=== PATIENT | male | born 1940 | race Caucasian/White ===

== ENCOUNTER → 2017-04-20 | Outpatient (CLI) | payer OTHER, BC ==
[~2017-04-20] MED LIST: ACETAMINOPHEN325 M1 PO; ADULT LOW DOSE81 MG PO; ALBUTEROL2.5 MG/0.5 INH; ALBUTEROL2.5 MG/31 INH; ASPIR 8181 MG PO; ASPIRIN EC325 M1 PO; ATENOLOL 50MG T50 M1 PO; ATROVENT30 ML INH; BENICAR20 MG PO; CARDIZEM CD 30300 M1 PO; CATHFLO ACT2 MG/VIA1 IJ; CENTRUM SILVER1 EAC4 PO; CERTAGEN SENIOR PO; COLACE100 MG PO; COZAAR100 MG PO; DULCOLAX10 MG RC; DUONEB 2.5-0.5 M3 ML INH; ELIQUIS5 MG PO; FLECAINIDE ACE100 MG PO; HYDROCHLOROTH12.5 M2 PO; HYDROCODONE-AP1 EAC6 PO; HYDROXYCHLOROQ200 M1 PO; KEFLEX250 MG PO; LASIX 20 MG TAB20 MG PO; LEVAQUIN 250 M250 MG PO; LIPITOR 20 MG T20 M1 PO; MILK OF MA2400 MG/10 PO; MIRALAX17 GM; MIRALAX17 GM PO; NORCO 5-325 TA1 EACH PO; NORVASC10 MG PO; NOVOLIN N100 UNIT/3 SQ; PACERONE 200 M200 M1 PO; PLAVIX 75 MG TA75 MG PO; PREDNISONE 10 M10 MG PO; PROAIR HFA8.5 GM INH; SENOKOT-S1 TA1 PO; SPIRIVA INH; TENORMIN25 MG PO; TENORMIN50 MG PO; TRAMADOL 50 MG50 MG PO; TYLENOL325 MG PO; VANCOCIN 250 M250 M1 PO; VENTOLIN HFA 1818 GM INH; VISINE-A EYE DR15 M1 OP; VITAMIN C120 GM
== END ==
LOC: HYPER 04-06 10:05
DX: T81.31XA Disruption of external operation (surgical) wound, not elsewhere classified, initial encounter (principal); I73.9 Peripheral vascular disease, unspecified; J44.9 Chronic obstructive pulmonary disease, unspecified; Z95.0 Presence of cardiac pacemaker; Z87.891 Personal history of nicotine dependence; Y83.8 Other surgical procedures as the cause of abnormal reaction of the patient, or of later complication, without mention of misadventure at the time of the procedure

== ENCOUNTER → 2017-04-26 | Outpatient (CLI) | payer OTHER, BC | LOC: HYPER 06:58 | DX: T81.31XD Disruption of external operation (surgical) wound, not elsewhere classified, subsequent encounter (principal); J44.9 Chronic obstructive pulmonary disease, unspecified; I73.9 Peripheral vascular disease, unspecified; Y83.8 Other surgical procedures as the cause of abnormal reaction of the patient, or of later complication, without mention of misadventure at the time of the procedure ==

== ENCOUNTER → 2017-05-03 | Outpatient (CLI) | payer OTHER, BC | LOC: HYPER 07:09 | DX: T81.31XD Disruption of external operation (surgical) wound, not elsewhere classified, subsequent encounter (principal); I70.245 Atherosclerosis of native arteries of left leg with ulceration of other part of foot; L97.521 Non-pressure chronic ulcer of other part of left foot limited to breakdown of skin; I73.9 Peripheral vascular disease, unspecified; J44.9 Chronic obstructive pulmonary disease, unspecified; Z87.891 Personal history of nicotine dependence; Y83.8 Other surgical procedures as the cause of abnormal reaction of the patient, or of later complication, without mention of misadventure at the time of the procedure ==

== ENCOUNTER → 2017-05-10 | Outpatient (CLI) | payer OTHER, BC | LOC: HYPER 05-09 11:52 | DX: T81.31XD Disruption of external operation (surgical) wound, not elsewhere classified, subsequent encounter (principal); I73.9 Peripheral vascular disease, unspecified; J44.9 Chronic obstructive pulmonary disease, unspecified; Z95.0 Presence of cardiac pacemaker; Z87.891 Personal history of nicotine dependence; Y83.8 Other surgical procedures as the cause of abnormal reaction of the patient, or of later complication, without mention of misadventure at the time of the procedure ==

== ENCOUNTER → 2017-05-17 | Outpatient (CLI) | payer OTHER, BC | LOC: HYPER 07:19 | DX: T81.31XD Disruption of external operation (surgical) wound, not elsewhere classified, subsequent encounter (principal); I73.9 Peripheral vascular disease, unspecified; J44.9 Chronic obstructive pulmonary disease, unspecified; Z95.0 Presence of cardiac pacemaker; Z87.891 Personal history of nicotine dependence; Y83.8 Other surgical procedures as the cause of abnormal reaction of the patient, or of later complication, without mention of misadventure at the time of the procedure ==

== ENCOUNTER → 2017-06-21 | Outpatient (CLI) | payer OTHER, BC | LOC: HYPER 06:48 | DX: T81.31XD Disruption of external operation (surgical) wound, not elsewhere classified, subsequent encounter (principal); I87.333 Chronic venous hypertension (idiopathic) with ulcer and inflammation of bilateral lower extremity; L97.821 Non-pressure chronic ulcer of other part of left lower leg limited to breakdown of skin; L97.811 Non-pressure chronic ulcer of other part of right lower leg limited to breakdown of skin; E43 Unspecified severe protein-calorie malnutrition; J44.9 Chronic obstructive pulmonary disease, unspecified; Z87.891 Personal history of nicotine dependence; Y83.8 Other surgical procedures as the cause of abnormal reaction of the patient, or of later complication, without mention of misadventure at the time of the procedure ==

== ENCOUNTER → 2017-06-28 | Outpatient (CLI) | payer OTHER, BC | LOC: HYPER 06:43 | DX: T81.31XD Disruption of external operation (surgical) wound, not elsewhere classified, subsequent encounter (principal); I87.333 Chronic venous hypertension (idiopathic) with ulcer and inflammation of bilateral lower extremity; L97.811 Non-pressure chronic ulcer of other part of right lower leg limited to breakdown of skin; L97.821 Non-pressure chronic ulcer of other part of left lower leg limited to breakdown of skin; E43 Unspecified severe protein-calorie malnutrition; J44.9 Chronic obstructive pulmonary disease, unspecified; I73.9 Peripheral vascular disease, unspecified; Z95.0 Presence of cardiac pacemaker; Z87.891 Personal history of nicotine dependence; Y83.8 Other surgical procedures as the cause of abnormal reaction of the patient, or of later complication, without mention of misadventure at the time of the procedure ==

== ENCOUNTER → 2017-07-05 | Outpatient (CLI) | payer OTHER, BC | LOC: HYPER | DX: T81.31XD Disruption of external operation (surgical) wound, not elsewhere classified, subsequent encounter (principal); I87.333 Chronic venous hypertension (idiopathic) with ulcer and inflammation of bilateral lower extremity; L97.821 Non-pressure chronic ulcer of other part of left lower leg limited to breakdown of skin; L97.811 Non-pressure chronic ulcer of other part of right lower leg limited to breakdown of skin; I70.245 Atherosclerosis of native arteries of left leg with ulceration of other part of foot; L97.521 Non-pressure chronic ulcer of other part of left foot limited to breakdown of skin; L89.102 Pressure ulcer of unspecified part of back, stage 2; E43 Unspecified severe protein-calorie malnutrition; J44.9 Chronic obstructive pulmonary disease, unspecified; Z87.891 Personal history of nicotine dependence; Z95.0 Presence of cardiac pacemaker; Y83.8 Other surgical procedures as the cause of abnormal reaction of the patient, or of later complication, without mention of misadventure at the time of the procedure ==

== ENCOUNTER 2017-07-19 09:05 | Inpatient (IN) | payer OTHER, BC ==
[~2017-07-19] VITALS: Ht 182.9 cm; Wt 90.3 kg
[2017-07-19] VITALS (8 sets, daily range): BP systolic 111–144; BP diastolic 47–66
--- NOTE | ~2017-07-19 | HC ---
[facility] [place] [address] [address] CONSULTATION Name: EASTON UNGER Room #: 202-P ADM IN M.R.#: [id number] Admission: 07/19/17 Attend Phys: Jian Boston MD Discharge: Date of : 40 Report #: [id number] THIS REPORT FOR: //name// CC: Jian Zarate DATE OF SERVICE: 07/19/2017 REFERRING PROVIDER: Jian Boston MD REASON FOR CONSULTATION: Pulmonary embolism, shortness of breath and chest pain. HISTORY OF PRESENT ILLNESS: Our group was asked to evaluate the patient in consultation while hospitalized at [facility]. A pleasant 77-year-old male, typically followed by Dr. Buchanan of our group, has a history of severe COPD and obstructive sleep apnea presented to the Emergency Department with complaints of four days of chest pain and also has a chronic left lower extremity wound, which has been healing as well as a back wound that has been healing and was going to seek care with his wound care physician, but his chest pain has maintained persistence over the last four days and presented to the Emergency Department for further evaluation and was initially admitted for possible pneumonia as there is a possible left basilar infiltrate; however, CT of the chest PE protocol did show small PEs. The patient has some chronic pleural plaques that were stable as well as some small pleural effusions noted. He has been getting some diuresis. He had been on Eliquis in the past for atrial fibrillation, but had some nosebleeds and has not been on any anticoagulation since that time. Denies any other significant bleeding problems and getting ready to be initiated on IV heparin drip. No recent exacerbations of his COPD. ALLERGIES: No known drug allergies. PAST MEDICAL HISTORY: 1. COPD, most recent FEV1 of 1.94 liters. 2. Atrial fibrillation, chronic. 3. Coronary artery disease. 4. Gastroesophageal reflux disease. 5. Hypertension. 6. Pleural plaques. 7. History of rheumatoid arthritis. 8. Obstructive sleep apnea. 9. Sick sinus syndrome, status post pacemaker placement. 10. Peripheral vascular disease. [facility] [address] [place] [address] CONSULTATION Name: EASTON UNGER Room #: 202-P [facility] IN ..#: [id number] Admission: 07/19/17 Attend Phys: Jian Boston MD Discharge: Date of : 40 Report #: [id number] PAST SURGICAL HISTORY: Includes the abdominal aortic aneurysm repair in 2012, pacemaker placement and prior knee arthroplasties bilaterally. SOCIAL HISTORY: The patient is an ex-smoker quitting in 2010. He has about a 129-htam-fiws history of tobacco use. No significant alcohol consumption. He is retired. FAMILY HISTORY: Negative for any significant pulmonary disease. REVIEW OF SYSTEMS: CONSTITUTIONAL: Denies any fevers, chills or sweats. ENT: No upper respiratory congestion, rhinorrhea or dysphagia. CARDIOVASCULAR: No history of atrial fibrillation. No chest pains or palpitations. GASTROINTESTINAL: No nausea, vomiting, diarrhea, constipation or abdominal pain. GENITOURINARY: No dysuria, no frequency or hematuria. INTEGUMENT: Denies any new rash. He has some chronic wounds that have been healed as described in the HPI. MUSCULOSKELETAL: No joint pains or swelling. PHYSICAL EXAMINATION: VITAL SIGNS: Afebrile, pulse 60, respiratory rate 16, blood pressure 135/59 and oxygen saturation 99%. GENERAL: This is a pleasant elderly male and in no distress. ENT: Clear oropharynx. No thrush. NECK: Supple, no lymphadenopathy. LUNGS: Diminished with some pleural friction rub on the left. CARDIOVASCULAR: Heart was irregular. No murmurs noted. ABDOMEN: Soft, nontender and no masses. EXTREMITIES: With 1+ edema, right much greater than left. LABORATORY DATA: White blood cell count 22,000, hemoglobin 10, hematocrit 34 and platelet count of 299. Urinalysis is negative. Sodium 138, potassium 4.0, chloride 104, bicarbonate 23, BUN 29, creatinine 1.2, glucose 122, AST is 120 and alkaline phosphatase 163. ProBNP is 16,000. Troponin 0.24. Albumin 1.6. CT chest PE protocol as described with small bilateral pulmonary emboli, small pleural effusions and some mediastinal adenopathy, stable. IMPRESSION: 1. Small pulmonary emboli. The patient should be anticoagulated. I suspect he has a right lower extremity DVT based on exam. We will start with heparin IV titrated. We will drip given prior bleeding problems and ongoing anemia at this time. 2. Chronic obstructive pulmonary disease with mild exacerbation. 3. History of atrial fibrillation. [address] [address] CONSULTATION Name: UNGEREASTON DAYNA Room #: 202-P ADM IN M.R.#: [id number] Admission: 07/19/17 Attend Phys: Jian Boston MD Discharge: Date of : 40 Report #: [id number] 4. Peripheral vascular disease. 5. Decubitus wounds. RECOMMENDATIONS: 1. As outlined above. 2. Trend hemoglobin, chest x-rays and continue with anticoagulation. 3. Consider hematology consultation if indicated. Thank you for requesting our suggestions. By: [id number] [id number] Efrain Hernández MD /nt
--- NOTE | ~2017-07-19 | 2DMMODE ---
[facility] [address] [place] [address] 2 D/M-MODE ECHOCARDIOGRAM Name: EASTON UNGER Room #: 202-P ADM IN M.R.#: [id number] Admission: 07/19/17 Attend Phys: Jian Boston, Discharge: Date of : 40 Date of Service: 07/19/17 1518 Report #: [id number] THIS REPORT FOR: //name// APPROVED REPORT Study performed: 07/19/2017 15:21:21 EXAM: Comprehensive 2D, Doppler, and color-flow Echocardiogram Patient Location: Echo lab Room #: 202 Status: routine BSA: 2.08 HR: 60 bpm BP: 135/59 mmHg Other Information Study Quality: Adequate Indications Elevated BNP, chest pain, CHF. Hx: Pacemaker, Afib, COPD, HTN 2D Dimensions RVDd: 37.75 mm IVSd: 9.18 (7-11mm) LVOT Diam: 21.58 (18-24mm) LVDd: 49.56 mm PWd: 7.73 (7-11mm) Aortic Root: 34.13 mm Volumes Left Atrial Volume (Systole) Single Plane 4CH: 75.29 mL Single Plane 2CH: 83.13 mL LA ESV Index: 40.00 mL/m2 Aortic Valve AoV Peak Parveen.: 1.78 m/s AO Peak Gr.: 12.74 mmHg LVOT Max P.22 mmHg LVOT Max V: 1.14 m/s DAMIAN Vmax: 2.34 cm2 Mitral Valve E/A Ratio: 0.9 MV Decel. Time: 508.79 ms MV E Max Parveen.: 0.39 m/s MV A Parveen.: 0.45 m/s MV PHT: 147.55 ms [facility] [place] [address] [place] [address] 2 D/M-MODE ECHOCARDIOGRAM Name: EASTON UNGER Room #: 202-P [facility] IN .R.#: [id number] Admission: 07/19/17 Attend Phys: Jian Boston, Discharge: Date of : 40 Date of Service: 07/19/17 1518 Report #: [id number] IVRT: 106.11 ms Pulmonary Valve PV Peak Parveen.: 0.96 m/s PV Peak Gr.: 3.69 mmHg Pulmonary Vein P Vein S: 0.58 m/s P Vein D: 0.40 m/s P Vein S/D Ratio: 1.45 Tricuspid Valve TR Peak Parveen.: 2.95 m/s RAP Estimate: 5.00 mmHg TR Peak Gr.: 34.84 mmHg PA Pressure: 40.00 mmHg Left Ventricle The left ventricle is normal size. Paradoxical septal motion, probably related to pacing. There is normal left ventricular wall thickness. Left ventricular systolic function is normal. LVEF is 50-55%. Mild diastolic dysfunction is present (impaired relaxation pattern). Right Ventricle The right ventricle is normal size. The right ventricular systolic function is normal. Pacemaker lead is present in the right ventricle. Atria Left atrium is moderately dilated. Right atrium is moderately dilated. Aortic Valve Aortic valve is calcified, trileaflet No aortic regurgitation. There is no aortic valvular stenosis. Mitral Valve The mitral valve is normal in structure. Mild mitral regurgitation. Tricuspid Valve The tricuspid valve is normal in structure. Moderate tricuspid regurgitation. Estimated PAP is 40mmHg. Pulmonic Valve Pulmonic valve is not well visualized. Trace pulmonic regurgitation. [facility] [address] [place] [address] 2 D/M-MODE ECHOCARDIOGRAM Name: CORNELEASTON DAYNA Room #: 202-P [facility] IN M.R.#: [id number] Admission: 07/19/17 Attend Phys: Jian Boston, Discharge: Date of : 40 Date of Service: 07/19/17 1518 Report #: [id number] Great Vessels The aortic root is normal in size. Descending aorta is not well visualized. IVC is normal in size and collapses >50% with inspiration. Pericardium There is no pericardial effusion. <Conclusion> Left ventricular systolic function is normal. LVEF is 50-55%. Paradoxical septal motion, probably related to pacing. Mild diastolic dysfunction Both atria are moderately dilated. Aortic valve is calcified, trileaflet, no aortic valvular stenosis or insufficiency. The mitral valve is normal in structure. Mild mitral regurgitation. Pulmonary artery pressure of 40mmHg There is no pericardial effusion. <ELECTRONICALLY SIGNED> By: Bhupendra Zhang MD, [facility] 07/19/17 [phone] Bhupendra Zhang MD, FACC /INF
--- NOTE | ~2017-07-19 | HC ---
[facility] [place] [address] [place] [address] CONSULTATION Name: CORNELEASTON DAYNA Room #: 202-P ADM IN M.R.#: [id number] Admission: 07/19/17 Attend Phys: Jian Boston MD Discharge: Date of : 40 Report #: [id number] THIS REPORT FOR: //name// CC: Jian Zarate REASON FOR CONSULTATION: I was asked to evaluate concerning left foot infection and postoperative lumbar spine surgical wound. HISTORY OF PRESENT ILLNESS: The patient is a 77-year-old who presented to the emergency room with left-sided pleuritic type chest pain that has been ongoing for approximately 4 days. No fever, chills, or sweats. No cough or sputum production of significance. This was persisting, therefore he presented to the emergency room. No fever, chills, or sweats. He had lumbar spine surgery and has a wound VAC in place. He also has a left foot wound that has progressed over the last several days. The patient was a poor historian. He had a history of DVT as well as coronary artery disease with stents, permanent pacemaker, and atrial fibrillation. PAST MEDICAL HISTORY: COPD, hypertension, appendectomy, right hand crush injury surgically repaired, left eye trauma with blindness, bilateral total knee arthroplasties, atrial fibrillation with sick sinus syndrome, now with permanent pacemaker; abdominal aortic aneurysm repair in 2012, obstructive sleep apnea, rheumatoid arthritis, bilateral renal stents, previous tunneled dialysis catheter, now removed; gastroesophageal reflux, spinal stenosis following spinal surgery, and right kidney mass, status post resection. ALLERGIES: None known. MEDICATIONS: As noted on OCT, which were reviewed. Now on vancomycin. FAMILY HISTORY: Noncontributory. SOCIAL HISTORY: Past smoker, no significant alcohol intake. REVIEW OF SYSTEMS: No abdominal pain, nausea, vomiting, or diarrhea. No dysuria or frequency. Back pain is under reasonable control. Wound VAC in place. PHYSICAL EXAMINATION: VITAL SIGNS: Afebrile and hemodynamically stable. GENERAL: The patient is alert and cooperative. Peripheral IV in place. HEENT: Unremarkable. CHEST: Clear. HEART: Regular. ABDOMEN: Soft and nontender. BACK: Incision with wound VAC in place. [facility] [address] [place] [address] CONSULTATION Name: EASTON UNGER DAYNA Room #: 202-P ADM IN M.R.#: [id number] Admission: 07/19/17 Attend Phys: Jian Boston MD Discharge: Date of : 40 Report #: [id number] EXTREMITIES: Left foot first metatarsal and first toe erythema. No drainage. 2+ peripheral edema. Pulses were palpable. LABORATORY STUDIES: Chest x-ray was clear. BNP 16,000. Troponin 0.24. Hemoglobin 9.6, WBC 19.4 on admission, up to 21,000 today. Creatinine 1.2. AST 120 and alk phos 163. Left foot x-ray was negative. CT scan of the chest showed what appears to be a new right lower lobe pulmonary embolus. IMPRESSION: A 77-year-old with leukocytosis along with wound to the left foot and first digit, pulmonary embolus, recent lumbar spine surgery with postoperative wound, right groin wound from previous arterial revascularization procedure. RECOMMENDATIONS: We will continue vancomycin and cefepime pending further studies. Check blood cultures. Wound care to the left toe. May need further imaging studies. Anticoagulation for pulmonary embolism. May need further imaging of his spine if no improvement. Also, consider further arterial studies of the left leg. <ELECTRONICALLY SIGNED> By: Gavin Cramer MD 07/20/17 1046 [id number] Gavin Cramer MD /nt
--- NOTE | ~2017-07-19 | EKG ---
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12 : 1940 Requested By: Gabby Curry Order Number: [id number] MD: Hussein Keyes Measurements Intervals [place] Rate: 60 P: -23 CA: 193 QRS: -16 QRSD: 74 T: 22 QT: 377 QTc: 377 Interpretive Statements Sinus rhythm Inferior infarct, old Compared to ECG 09/30/2015 07:33:25 Atrial-paced complex(es) or rhythm no longer present T-wave abnormality no longer present Possible ischemia no longer present Myocardial infarct finding still present Electronically Signed On 07-19-2017 21:10:11 [employer]PERATIONS DIRECTOR by Hussein Keyes [email or web address] <ELECTRONICALLY SIGNED> By: Hussein Keyes MD 07/19/172109 8 8 Hussein Keyes MD /EPI
[2017-07-19 09:39] LABS: HEMATOCRIT 30.1 % (42.0-52.0); HEMOGLOBIN 9.6 gm/dL (14.0-18.0); MCH 23.6 pg (26.0-34.0); MCHC 31.8 g/dL (28.0-37.0); MCV 74.4 fL (80.0-100.0); PLATELET COUNT 275 thou/uL (150-400); RBC 4.05 mil/uL (4.50-6.00); RDW 19.3 % (10.5-14.5); WBC 19.4 thou/uL (4.0-11.0)
[2017-07-19 09:40] LABS: MANUAL DIFF YES
[2017-07-19] MEDS ORDERED: JUVEN PACKET1 EAC1 PO (10:06)
[2017-07-19] MEDS ORDERED: ATENOLOL 50MG T50 M1 PO (10:06)
[2017-07-19] MEDS ORDERED: KLOR-CON 1010 MEQ PO (10:06)
[2017-07-19 10:24] LABS: INR 1.5; PROTIME 15.3 Seconds (9.3-11.4)
[2017-07-19 10:30] LABS: ABSOLUTE NEUTROPHILS 17.8 thou/uL (1.4-8.2); HYPOCHROMASIA 1+; MICROCYTES 2+; OVALOCYTES 1+; PLATELET ESTIMATE NORMAL; TOTAL CELL COUNT 100
[2017-07-19 10:32] LABS: CALCIUM 8.6 mg/dL (8.5-10.1); CREATININE 1.2 mg/dL (0.7-1.3)
[2017-07-19 10:38] LABS: ALBUMIN 1.6 g/dL (3.4-5.0); TOTAL BILIRUBIN 0.7 mg/dL (<0.1-1.0); TOTAL PROTEIN 5.1 g/dL (6.4-8.2)
[2017-07-19 11:55] LABS: URINE BILIRUBIN NEGATIVE (Negative); URINE BLOOD NEGATIVE (Negative); URINE COLOR YELLOW; URINE GLUCOSE-RANDOM* NEGATIVE (Negative); URINE KETONES NEGATIVE (Negative); URINE NITRITE NEGATIVE (Negative); URINE PROTEIN (DIPSTICK) NEGATIVE (Negative); URINE SPECIFIC GRAVITY <= 1.005 (1.005-1.035); URINE UROBILINOGEN 0.2 E.U./dl (0.2-1.0)
[2017-07-19] MEDS ORDERED: PERCOCET PO (13:02)
[2017-07-19] MEDS ORDERED: SPIRIVA INH (13:04)
[2017-07-19 16:23] LABS: HEMATOCRIT 33.9 % (42.0-52.0); HEMOGLOBIN 10.4 gm/dL (14.0-18.0); MCH 23.2 pg (26.0-34.0); MCHC 30.7 g/dL (28.0-37.0); MCV 75.7 fL (80.0-100.0); RBC 4.48 mil/uL (4.50-6.00); RDW 19.1 % (10.5-14.5); WBC 21.5 thou/uL (4.0-11.0)
[2017-07-20] VITALS (8 sets, daily range): BP systolic 80–135; BP diastolic 31–104
[2017-07-20 00:45] LABS: HEMATOCRIT 30.4 % (42.0-52.0); HEMOGLOBIN 9.5 gm/dL (14.0-18.0); MCH 23.5 pg (26.0-34.0); MCHC 31.3 g/dL (28.0-37.0); MCV 74.8 fL (80.0-100.0); PLATELET COUNT 297 thou/uL (150-400); RBC 4.07 mil/uL (4.50-6.00); RDW 18.6 % (10.5-14.5); WBC 22.9 thou/uL (4.0-11.0)
[2017-07-20 01:01] LABS: MANUAL DIFF YES
[2017-07-20 01:29] LABS: ANION GAP 11 mmol/L (7-16); BUN 30 mg/dL (7-18); CALCIUM 8.2 mg/dL (8.5-10.1); CHLORIDE 103 mmol/L (98-107); CHOLESTEROL 109 mg/dL (<200); CO2 26 mmol/L (21-32); CREATININE 1.4 mg/dL (0.7-1.3); GLUCOSE 131 mg/dL (74-106); HDL CHOLESTEROL 14 mg/dL (>40); LDL CHOLESTEROL 70 mg/dL (<100); POTASSIUM 3.7 mmol/L (3.5-5.1); SODIUM 140 mmol/L (136-145); TC:HDL 7.8 Ratio (Not establshd); TRIGLYCERIDE 126 mg/dL (<150); VLDL 25 mg/dL (<40)
[2017-07-20 01:30] LABS: SERUM ASSESSMENT Clear
[2017-07-20 03:11] LABS: GLYCOHEMOGLOBIN (HGB A1C) 5.7 % (4.8-5.6)
[2017-07-20 04:28] LABS: ANISOCYTOSIS 3+; HYPOCHROMASIA SLIGHT; LARGE PLATELETS OCCASIONAL; MYELOCYTES 1 %; POLYCHROMASIA OCCASIONAL; TOTAL CELL COUNT 100
[2017-07-20 12:37] LABS: INR 1.6
[2017-07-20 12:42] LABS: ALBUMIN 1.4 g/dL (3.4-5.0); DIRECT BILIRUBIN 0.3 mg/dL (<0.1-0.3); TOTAL BILIRUBIN 0.7 mg/dL (<0.1-1.0); TOTAL PROTEIN 4.7 g/dL (6.4-8.2)
[2017-07-20 12:48] LABS: PROTIME 16.7 Seconds (9.3-11.4)
== END 2017-07-20 14:48 | DRG 175 ==
LOC: ER 09:05 → 2N 10:38 → EROBS 10:38 → 2N 12:08 → ICU 07-20 13:51
PROVIDERS: Internal Medicine; Nurse Practitioner; Nurse Practitioner Family
PROC: 2W15X6Z Compression of Back using Pressure Dressing (ICD-10-PCS; principal; 2017-07-19)
PROC: 5A12012 Performance of Cardiac Output, Single, Manual (ICD-10-PCS; 2017-07-20)
DX: I26.99 Other pulmonary embolism without acute cor pulmonale (principal); E43 Unspecified severe protein-calorie malnutrition; I50.33 Acute on chronic diastolic (congestive) heart failure; I48.92 Unspecified atrial flutter; L03.116 Cellulitis of left lower limb; D68.59 Other primary thrombophilia; I82.401 Acute embolism and thrombosis of unspecified deep veins of right lower extremity; J44.9 Chronic obstructive pulmonary disease, unspecified; G47.33 Obstructive sleep apnea (adult) (pediatric); M06.9 Rheumatoid arthritis, unspecified; I73.9 Peripheral vascular disease, unspecified; I49.5 Sick sinus syndrome; H54.40 Blindness, one eye, unspecified eye; Z96.653 Presence of artificial knee joint, bilateral; K21.9 Gastro-esophageal reflux disease without esophagitis; I11.0 Hypertensive heart disease with heart failure; D72.829 Elevated white blood cell count, unspecified; I25.10 Atherosclerotic heart disease of native coronary artery without angina pectoris; I27.81 Cor pulmonale (chronic); I48.0 Paroxysmal atrial fibrillation; L89.109 Pressure ulcer of unspecified part of back, unspecified stage; J61 Pneumoconiosis due to asbestos and other mineral fibers; I95.9 Hypotension, unspecified; Z79.899 Other long term (current) drug therapy; Z95.0 Presence of cardiac pacemaker; Z85.528 Personal history of other malignant neoplasm of kidney; Z79.82 Long term (current) use of aspirin; Z90.89 Acquired absence of other organs; Z87.891 Personal history of nicotine dependence; Z68.27 Body mass index [BMI] 27.0-27.9, adult; Z95.5 Presence of coronary angioplasty implant and graft
CPT/HCPCS: 10081